=== PATIENT | female | born 1950 | race Caucasian/White ===

== ENCOUNTER → 2016-09-21 | Day surgery (SDC) | payer OTHER ==
[~2016-09-21] MED LIST: BUPIVACAINE/EPINEPHRINE 0.25% 50 ML VIAL ONE; BUPIVACAINE/EPINEPHRINE 0.25% PF 10 ML VIAL ONE; LACTATED RINGER'S 1000 ML INJ 1,000 ML ONE; LIDOCAINE 1%/EPINEPHrine 1:100,000 SOLN 20 ML VIAL ONE; MIDAZOLAM HCL 2 MG/2 ML VIAL ONE; ONDANSETRON HCL 4 MG/2 ML VIAL IV PUSH ONE; PROPOFOL 200 MG/20 ML AMP IV ONE; ceFAZolin INJ 1,000 MG VIAL ONE
--- NOTE | 2016-09-21 09:37 | TN ---
cc: ÁNGEL SPENCE MD DATE OF SURGERY 09/21/2016 PREOPERATIVE DIAGNOSIS Scalp mass. POSTOPERATIVE DIAGNOSIS Scalp mass. PROCEDURE PERFORMED Excision of scalp mass. SURGEON Dr. Ángel Spence DIRECTOR OF HOTEL See OR sheet. ANESTHESIA GETA. IV FLUIDS See anesthesia sheet. ESTIMATED BLOOD LOSS 5 cc. DRAINS None. COMPLICATIONS None. WOUND CLASSIFICATION Clean. SPECIMENS Cystic mass sent to pathology. INDICATION The patient is a 66-year-old female who presents with complaints of scalp mass that has been there for many years. It is increasing in size and the patient was clipped requesting excision of mass. Discussed with the patient in detail regarding excision. DETAILS OF PROCEDURE The patient was taken to the operating suite, placed in supine position. She was prepped and draped in the usual sterile fashion after induction of anesthesia. Brief time-out was done stating the correct patient, procedure, surgical site. We were all in agreement with this. Attention directed to the scalp. An elliptical incision after injection of local anesthetic was done to include some of the skin overlying the cystic scalp mass. This was done with a 15 blade. Further dissection with electro Bovie cautery and hemostat and Metzenbaum scissors. The cystic mass was mobilized and hemostasis was obtained. The mass was removed and sent to pathology. Electro Bovie cautery used for hemostasis. The wound bed was irrigated. 3-0 Vicryl was used to reapproximate the deep tissue layers, 4-0 nylon was used to reapproximate the skin in an interrupted fashion. All counts were correct. The patient tolerated procedure well. There was no intraoperative complication. The patient was taken stable to the PACU. MD TANISHA Taylor/CRISTIANO /9:10 AM /9:34 AM
== END | disposition home or self-care (01) ==
LOC: ESDC 06:37
PROVIDERS: ATTEND Surgery
DX: L72.12 Trichodermal cyst (principal)
CPT/HCPCS: 00300; 11424; 88304; J0690; J2250; J2405; J3010; J7120; 88305